=== PATIENT | male | born 1955 | race Two or more races ===

== ENCOUNTER → 2016-10-29 | Outpatient (CLI) | payer OTHER ==
[~2016-10-29] MED LIST: ALBUTEROL17 GM INH; AZITHROMYCIN500 MG PO; OMNICEF300 MG PO
--- NOTE | ~2016-10-29 | CT57 ---
[facility] A Service of [facility] & [facility] RADIOLOGY TEXT RESULTS PATIENT: RACHAEL ROSENBAUM LOCATION: [facility] : 53 UNIT #: [id number] AGE: [address]: Patrice Chatterjee MD SEX: M ORDER DR: [id number] [facility]. [place], [place] [address] [id number] O MR#: [id number] Acc #: [id number] NAME: RACHAEL ROSENBAUM : 1955 SEX: M STUDY DATE/TIME: 10/29/2016 13:00 UNIT: [facility] ROOM: STUDY DESCRIPTION: CT Chest Wo Cont Attending Physician: Patrice Chatterjee M.D. Referring Physician: Patrice Chatterjee M.D. Ordering Physician: Patrice Chatterjee M.D. Primary Care Physician: Primary Care Physician No MEDICAL IMAGING REPORT This report is preliminary unless electronic signature is present EXAM CT chest INDICATIONS Abnormal chest radiograph. Pulmonary nodule. Cough for 5 months. Hemoptysis. Positive smoking history. TECHNIQUE CT of the chest without contrast. Coronal and sagittal reconstructions were obtained. Axial images were obtained in the supine position during both inspiration and expiration. Prone inspiration images were also acquired. This is performed as a high-resolution chest CT protocol. The CT exam was performed with one or more of the following radiation dose reduction techniques: automatic exposure control, adjustment of mA and/or kV according to patient size, and iterative reconstruction. COMPARISON CT chest 06/03/2012. FINDINGS There is a lower lobe predominant cylindrical bronchiectasis in both lungs. Overall, the pattern of bronchiectasis and distribution of bronchiectasis has not significantly changed from the 2013 comparison. Patient has a centrilobular distribution of noncalcified pulmonary nodules with an upper lobe predominance. These pulmonary nodules have not significantly changed from the prior exam. This is likely the sequela of a prior infectious process or indolent infection. There is no architectural distortion or honeycombing. No air trapping. No ground-glass attenuation to suggest an active alveolitis. Systemically, there is no evidence of a usual interstitial pneumonia. [facility] A Service of [facility] & [facility] RADIOLOGY TEXT RESULTS PATIENT: RACHAEL ROSENBAUM LOCATION: [facility] : 53 UNIT #: [id number] AGE: [address]: Patrice Chatterjee MD SEX: M ORDER DR: There is a borderline precarinal lymph node measuring 0.9 cm. Thoracic aorta is normal in caliber. No pericardial or pleural effusion. Limited images of the upper abdomen were obtained. There are no acute findings. IMPRESSION 1. Diffuse symmetrical bronchiectasis with a lower lobe predominance. The overall pattern is fairly similar to the 2013 comparison. 2. Tree-in-bud nodularity with an upper lobe predominance. Overall this is also not significantly changed. This is likely sequela of prior infection or indolent infection. 3. No evidence of a usual interstitial pneumonia (UIP). Dictated by... Bubba Baldwin M.D. THIS IS AN ELECTRONICALLY VERIFIED REPORT Bubba Baldwin M.D. at 10/30/2016 3:22 PM ESTEFANY/brian TD: 10/30/2016 10:05 JOB #: [id number] MEDICAL IMAGING REPORT Page 1 of 1 COPY
== END | disposition home or self-care (01) ==
LOC: CCAT 12:29
DX: R93.8 Abnormal findings on diagnostic imaging of other specified body structures (principal); J47.9 Bronchiectasis, uncomplicated; R91.8 Other nonspecific abnormal finding of lung field
CPT/HCPCS: 71250